=== PATIENT | male | born 1955 ===

== ENCOUNTER 2018-04-01 08:49 | Emergency (ER) | payer BC ==
[2018-04-01 09:09] VITALS: BP 134/91
[2018-04-01] MEDS ORDERED: Tetan/Diph/Pertus SYR(Tdap)* 0.5 ML SYR(BOOSTRIX) use SYR IM ONE (09:15)
[2018-04-01] MEDS ORDERED: Lidocaine 2% PF * 5 ML VIAL INJ ONE (09:23)
--- NOTE | 2018-04-01 09:23 | UC ---
Laceration HPI - HPI Summary HPI Summary: lacerated left hand fifth digit with hunting knife. No numbness, has normal tendon function. Uncertain of date of last tetanus, and he chooses to have one today rather than checking with PMD - History Of Current Complaint Chief Complaint: UCLaceration Stated Complaint: FINGER INJURY Time Seen by Provider: 04/01/18 09:06 Hx Obtained From: Patient Laceration Location: Finger - left fifth digit, medial border Mechanism Of Injury: Sharp Trauma Onset/Duration: Sudden Onset Severity: Mild Pain Intensity: 0 Aggravating Factors: Position, Movement Related History: Dominant Hand Right - Allergies/Home Medications Allergies/Adverse Reactions: Allergies Allergy/AdvReac Type Severity Reaction Status Date / Time Penicillins Allergy Rash Verified 04/01/18 09:03 pseudoephedrine Allergy Palpitation Verified 04/01/18 09:03 [From Sudafed] s fentanyl AdvReac Unknown Verified 04/01/18 09:03 Reaction Details meperidine [From Demerol] AdvReac See Comment Verified 04/01/18 09:03 Home Medications: Home Medications Cholecalciferol TAB* [Vitamin D TAB*] 1,000 unit PO DAILY 04/01/18 [History Confirmed 04/01/18] Esomeprazole Magnesium [Nexium] 40 mg PO DAILY 04/01/18 [History Confirmed 04/01] Telmisartan 20 mg PO DAILY 04/01/18 [History Confirmed 04/01/18] PMH/Surg Hx/FS Hx/Imm Hx Previously Healthy: Yes Cardiovascular History: Hypertension GI/ History: Gastroesophageal Reflux - Surgical History Surgical History: Unable to Obtain/Confirm Surgery Procedure, Year, and Place: Bicep tendon repair 30+ years ago. sinus surgery - Social History Occupation: Retired Alcohol Use: None Substance Use Type: None Smoking Status (MU): Never Smoked Tobacco - Immunization History Most Recent Tetanus Shot: UNSURE Review of Systems All Other Systems Reviewed And Are Negative: Yes Constitutional: Positive: Negative Skin: Positive: Other - laceration of finger Eyes: Positive: Negative ENT: Positive: Negative Respiratory: Positive: Negative Cardiovascular: Positive: Negative Gastrointestinal: Positive: Negative Genitourinary: Positive: Negative Motor: Positive: Negative Neurovascular: Positive: Negative Musculoskeletal: Positive: Negative Neurological: Positive: Negative Psychological: Positive: Negative Is Patient Immunocompromised?: No Physical Exam Triage Information Reviewed: Yes Appearance: Well-Appearing, No Pain Distress Vital Signs: Initial Vital Signs Temp 98.0 F 04/01/18 09:00 Pulse 91 04/01/18 09:00 Resp 18 04/01/18 09:00 BP 134/91 04/01/18 09:00 Pulse Ox 94 04/01/18 09:00 Vital Signs Reviewed: Yes Respiratory Exam: Normal Cardiovascular Exam: Normal Musculoskeletal Exam: Normal Neurological Exam: Normal Psychological Exam: Normal Skin Exam: Other - laceration over lateral border of Laceration Repair - Laceration Repair 1 Description: Linear - curvilinear Laceration Size After Repair: Length (cm) - 2 Modified For Repair: No Type Injection: Local Anesthesia Used: 2.0% Lido Cleansing Completed Via Routine Prep: Yes Irrigation With Pressure Irrigation Device: Yes Closure Material: Sutures - 3 interrupted sutures Closure Method: Single Layer Suture Of: Skin Suture Type: Prolene - 5-0 Laceration Course/Dx - Course/Dx Course Of Treatment: repair of laceration - Differential Dx - Laceration/Wound Differental Diagnoses: Laceration Provider Diagnoses: laceration left hand fifth digit Discharge - Sign-Out/Discharge Documenting (check all that apply): Patient Departure All imaging exams completed and their final reports reviewed: No Studies - Discharge Plan Condition: Stable Disposition: HOME Patient Education Materials: Diphtheria/Acellular Pertussis/Tetanus Vaccine ( By injection), Finger Laceration (ED) Referrals: No Primary Care Phys,NOPCP [Primary Care Provider] - Additional Instructions: Keep the wound as clean and dry as possible. Please have sutures removed in 7 or 8 days. You have had a tetanus booster today, which give 10 years of protection. Have a follow up check if there is increasing redness or discharge suggestive of infection. Say irving Clarke! - Billing Disposition and Condition Condition: STABLE Disposition: Home
[2018-04-01] MEDS ORDERED: Lidocaine 2% PF * 5 ML VIAL ONE (09:25)
== END 2018-04-01 10:00 | disposition home or self-care (01) ==
LOC: UCEAST 08:49
DX: S61.217A Laceration without foreign body of left little finger without damage to nail, initial encounter (principal); W26.0XXA Contact with knife, initial encounter; Y93.89 Activity, other specified; Y92.9 Unspecified place or not applicable; Y99.8 Other external cause status; I10 Essential (primary) hypertension; Z88.0 Allergy status to penicillin
CPT/HCPCS: 12001; 90471; 90715; 99201; G0463